=== PATIENT | female | born 2000 | race Caucasian/White ===

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

== ENCOUNTER 2018-02-03 12:01 | Emergency (ER) | payer OTHER ==
[~2018-02-03] VITALS: Ht 160 cm; Wt 68.0 kg
--- NOTE | 2018-02-03 12:44 | PHYS DOC ---
Past History Past Medical History: No Pertinent History Past Surgical History: Other Smoking: Non-smoker Additional Smoking Information: 1/4 PACK/DAY Alcohol Use: None Drug Use: None Adult General Chief Complaint Chief Complaint: ABDOMINAL PAIN HPI HPI Patient is a 17-year-old female who presents for evaluation of lower abdominal pain. She states that she is almost a week late on her current menstrual cycle and is concerned to be . She did take 2 home tests which were negative. She says the pain has been present for about a week and a half. It is intermittent and sharp. When I walked in the room to evaluate the patient she was on her cell phone and smiling and appeared to be comfortable and in no distress. She denies vaginal bleeding or discharge, constipation or diarrhea, fevers or chills, vomiting but has had some mild nausea, and denies chest pain or shortness of breath. She does report some lower back pain which has been mild. She states that it feels like she is having cramping typical of her menstrual period but she is not any bleeding at this point. LMP 12/27/17. Review of Systems Review of Systems Constitutional: Denies fever or chills [] Eyes: Denies change in visual acuity, redness, or eye pain [] HENT: Denies nasal congestion or sore throat [] Respiratory: Denies cough or shortness of breath [] Cardiovascular: No additional information not addressed in HPI [] GI: , no vomiting, bloody stools or diarrhea [] +lower abd pain, +nausea : Denies dysuria or hematuria [] +pelvic pain Musculoskeletal: Denies joint pain [] +low back pain Integument: Denies rash or skin lesions [] Neurologic: Denies headache, focal weakness or sensory changes [] Endocrine: Denies polyuria or polydipsia [] All other systems were reviewed and found to be within normal limits, except as documented in this note. Allergies Allergies Allergies Coded Allergies Type Severity Reaction Last Updated Verified No Known Drug Allergies 09/13/15 No Physical Exam Physical Exam Constitutional: Well developed, well nourished, no acute distress, non-toxic appearance. [] appears calm and comfortable HENT: Normocephalic, atraumatic, bilateral external ears normal, oropharynx moist, no oral exudates, nose normal. [] Eyes: PERRLA, EOMI, conjunctiva normal, no discharge. [] Neck: Normal range of motion, no tenderness, supple, no stridor. [] Cardiovascular:Heart rate regular rhythm, no murmur [] Lungs & Thorax: Bilateral breath sounds clear to auscultation [] Abdomen: Bowel sounds normal, soft, no tenderness, no masses, no pulsatile masses. [] +b/l adnexal ttp, +suprapubic ttp Pelvic exam: copious white/yellow discharge, no focal tenderness on bimanual, no bleeding, normal external genitalia, cervix with discharge but otherwise unremarkable Skin: Warm, dry, no erythema, no rash. [] Back: No tenderness, no CVA tenderness. [] Extremities: No tenderness, no cyanosis, no clubbing, ROM intact, no edema. [] Neurologic: Alert and oriented X 3, normal motor function, normal sensory function, no focal deficits noted. [] Psychologic: Affect normal, judgement normal, mood normal. [] Current Patient Data Vital Signs Vital Signs Date Time Temp Pulse Resp B/P (MAP) Pulse Ox O2 Delivery O2 Flow Rate FiO2 02/03/18 12:10 98.6 74 16 99 Room Air Lab Results Laboratory Tests Test 02/03/18 11:40 02/03/18 12:25 02/03/18 12:52 02/03/18 13:18 Bedside Urine HCG, Qualitative hcg negative Urine Collection Type Unknown Urine Color Yellow Urine Clarity Hazy Urine pH 5.5 Urine Specific [place] 1.025 Urine Protein Neg Urine Glucose (UA) Neg mg/dL Urine Ketones (Stick) Trace mg/dL Urine Blood Trace Urine Nitrite Neg Urine Bilirubin Neg Urine Urobilinogen Dipstick 0.2 mg/dL Urine Leukocyte Esterase Neg Urine RBC 0 /HPF Urine WBC Occ /HPF Urine Squamous Epithelial Cells Many /LPF Urine Bacteria Few /HPF Urine Mucus Slight /LPF White Blood Count 9.3 x10^3/uL Red Blood Count 4.78 x10^6/uL Hemoglobin 14.0 g/dL Hematocrit 42.2 % Mean Corpuscular Volume 88 fL Mean Corpuscular Hemoglobin 29 pg Mean Corpuscular Hemoglobin Concent 33 g/dL Red Cell Distribution Width 14.1 % Platelet Count 254 x10^3/uL Neutrophils (%) (Auto) 59 % Lymphocytes (%) (Auto) 34 % Monocytes (%) (Auto) 5 % Eosinophils (%) (Auto) 2 % Basophils (%) (Auto) 1 % Neutrophils # (Auto) 5.4 x10^3uL Lymphocytes # (Auto) 3.2 x10^3/uL Monocytes # (Auto) 0.4 x10^3/uL Eosinophils # (Auto) 0.2 x10^3/uL Basophils # (Auto) 0.1 x10^3/uL Maternal Serum HCG Beta Subunit < 1 mIU/mL Sodium Level 141 mmol/L Potassium Level 3.6 mmol/L Chloride Level 104 mmol/L Carbon Dioxide Level 26 mmol/L Anion Gap 11 Blood Urea Nitrogen 13 mg/dL Creatinine 0.9 mg/dL Estimated GFR (Cockcroft-Gault) 80.7 BUN/Creatinine Ratio 14 Glucose Level 96 mg/dL Calcium Level 9.2 mg/dL Total Bilirubin 0.2 mg/dL Aspartate Amino Transf (AST/SGOT) 15 U/L Alanine Aminotransferase (ALT/SGPT) 14 U/L Alkaline Phosphatase 61 U/L Total Protein 6.9 g/dL Albumin 3.7 g/dL Albumin/Globulin Ratio 1.2 Lipase 91 U/L Current Medications Medications (Trade) Dose Ordered Sig/Willa Route PRN Reason Start Time Stop Time Status Last Admin Dose Admin Ketorolac Tromethamine (Toradol) 30 mg 1X ONCE IV 02/03/18 13:15 02/03/18 13:16 DC 02/03/18 13:19 Ceftriaxone Sodium (Rocephin Im) 250 mg 1X ONCE IM 02/03/18 14:00 02/03/18 14:01 DC 02/03/18 13:55 Azithromycin (Zithromax) 1 gm 1X ONCE PO 02/03/18 14:10 02/03/18 14:11 DC 02/03/18 13:50 Laboratory Tests Test 02/03/18 11:40 POC Urine HCG, Qualitative hcg negative (Negative) EKG EKG [] Radiology/Procedures Radiology/Procedures [address] [address] IMAGING REPORT Signed PATIENT: LISA SHARMA ACCOUNT: [id number] : 2000 LOCATION: ER AGE: 17 SEX: F EXAM STATUS: REG ER ORD. PHYSICIAN: ANGELICA OJE DO REASON: b/l adnexal pain, cramping, low back pain, not PROCEDURE: PELVIS COMPLETE EXAM: Pelvic sonogram. HISTORY: Adnexal pain. TECHNIQUE: Sonographic imaging of the pelvis was performed. COMPARISON: None. FINDINGS: The uterus measures 7.4 x 3.7 x 4.5 cm. The ovaries are normal in size and demonstrate normal blood flow. The endometrial stripe measures 10 mm in thickness. There is no pelvic free fluid. IMPRESSION: Unremarkable pelvic sonogram. Electronically signed by: Barbra Sheldon MD (02/03/2018 2:36 PM) [place] [id number] DICTATED AND SIGNED BY: BARBRA SHELDON MD DATE: 02/03/18 [id number] CC: ANGELICA JOE DO; JOSE DANIEL BETHEA MD ~ Course & Med Decision Making Course & Med Decision Making Pertinent Labs and Imaging studies reviewed. (See chart for details) @1450 - patient and mother up dated on lab and imaging results which are unremarkable. Workup today fails to reveal any emergent pathology. The patient has no additional complaints and appears comfortable and is in no distress. Pt will be notified if GC or Chlamydia are positive. Advised patient to follow up with her PCP or DEHAIRING MACHINE TENDER in the next 2-3 days. She is stable for discharge at this time. Dragon Disclaimer Dragon Disclaimer This electronic medical record was generated, in whole or in part, using a voice recognition dictation system. Departure Departure: Impression: Primary Impression: Pelvic pain Additional Impression: Vaginal discharge Disposition: 01 HOME, SELF-CARE Condition: STABLE Referrals: JOSE DANIEL BETHEA MD (PCP) Patient Instructions: Pelvic Pain, Female Additional Instructions: Follow-up with your doctor in the next 2-3 days. Return to the emergency Department immediately for new or worsening symptoms. Take ibuprofen at home for pain relief. Problem Qualifiers ANGELICA JOE DO Feb 03, 2018 12:44
[2018-02-03 12:52] LABS: BILIRUBIN,URINE NEG (NEG); CLARITY,URINE HAZY; COLOR,URINE YELLOW; GLUCOSE,URINE NEG (NEG)
[2018-02-03 12:53] LABS: BACTERIA,URINE FEW /HPF (0-FEW); NITRITE,URINE NEG (NEG); RBC,URINE 0 /HPF (0-2); SQUAMOUS EPITHELIAL CELL,UR MANY /LPF; UROBILINOGEN,URINE 0.2 mg/dL (0.2 mg/dL); WBC,URINE OCC /HPF (0-4)
[2018-02-03 13:09] LABS: BASO # 0.1 x10^3/uL (0.0-0.2); BASO % 1 % (0-3); EOS # 0.2 x10^3/uL (0.0-0.7); EOS % 2 % (0-3); HEMATOCRIT 42.2 % (36.0-47.0); LYMPH # 3.2 x10^3/uL (1.0-4.8); LYMPH % 34 % (24-48); MEAN CORPUSCULAR HEMOGLOBIN 29 pg (25-35); MEAN CORPUSCULAR HGB CONC 33 g/dL (31-37); MEAN CORPUSCULAR VOLUME 88 fL (79-100); MONO # 0.4 x10^3/uL (0.0-1.1); MONO % 5 % (0-9); NEUT # 5.4 x10^3uL (1.8-7.7); NEUT % 59 % (31-73); PLATELET COUNT 254 x10^3/uL (140-400); RED BLOOD COUNT 4.78 x10^6/uL (3.50-5.40); RED CELL DISTRIBUTION WIDTH 14.1 % (11.5-14.5); WHITE BLOOD COUNT 9.3 x10^3/uL (4.0-11.0)
[2018-02-03] MEDS ORDERED: KETOROLAC 30 MG/ML VIAL. IV ONE (13:15)
[2018-02-03 13:46] LABS: ALBUMIN 3.7 g/dL (3.4-5.0); ALBUMIN/GLOBULIN RATIO 1.2 (1.0-1.7); CALCIUM 9.2 mg/dL (8.5-10.1); CREATININE 0.9 mg/dL (0.6-1.0); GFR 80.7; POTASSIUM 3.6 mmol/L (3.5-5.1); TOTAL BILIRUBIN 0.2 mg/dL (0.2-1.0); TOTAL PROTEIN 6.9 g/dL (6.4-8.2)
[2018-02-03] MEDS ORDERED: cefTRIAXone IM 250 MG VIAL IM ONE (14:00)
[2018-02-03] MEDS ORDERED: AZITHROMYCIN 1 GM PACKET PO ONE (14:10)
--- NOTE | 2018-02-03 14:40 | RAD ---
EXAM: Pelvic sonogram. HISTORY: Adnexal pain. TECHNIQUE: Sonographic imaging of the pelvis was performed. COMPARISON: None. FINDINGS: The uterus measures 7.4 x 3.7 x 4.5 cm. The ovaries are normal in size and demonstrate normal blood flow. The endometrial stripe measures 10 mm in thickness. There is no pelvic free fluid. IMPRESSION: Unremarkable pelvic sonogram. Electronically signed by: Barbra Mills MD (02/03/2018 2:36 PM) [place] [id number]
[2018-02-03 15:01] VITALS: BP 103/86
[2018-02-04 14:13] LABS: CHLAMYDIA PROBE Negative (Negative)
== END 2018-02-03 15:03 | disposition home or self-care (01) ==
LOC: ER 12:01
DX: N89.8 Other specified noninflammatory disorders of vagina (principal); R10.2 Pelvic and perineal pain; F17.210 Nicotine dependence, cigarettes, uncomplicated
CPT/HCPCS: 36415; 76856; 80053; 81001; 81025; 83690; 84702; 85025; 87491; 87591; 96372; 96374; 99285; J0456; J0696; J1885; Q0111

== ENCOUNTER → 2018-09-05 | Outpatient (CLI) | payer OTHER ==
[2018-09-05 11:32] LABS: BASO % 0 % (0-3); EOS # 0.1 x10^3/uL (0.0-0.7); EOS % 2 % (0-3); HEMATOCRIT 42.1 % (36.0-47.0); LYMPH # 3.1 x10^3/uL (1.0-4.8); LYMPH % 36 % (24-48); MEAN CORPUSCULAR HEMOGLOBIN 30 pg (25-35); MEAN CORPUSCULAR HGB CONC 33 g/dL (31-37); MEAN CORPUSCULAR VOLUME 91 fL (79-100); MONO # 0.7 x10^3/uL (0.0-1.1); MONO % 8 % (0-9); NEUT # 4.7 x10^3uL (1.8-7.7); NEUT % 54 % (31-73); PLATELET COUNT 222 x10^3/uL (140-400); RED BLOOD COUNT 4.64 x10^6/uL (3.50-5.40); RED CELL DISTRIBUTION WIDTH 12.8 % (11.5-14.5); WHITE BLOOD COUNT 8.7 x10^3/uL (4.0-11.0)
[2018-09-05 11:43] LABS: ALBUMIN 4.1 g/dL (3.4-5.0); ALBUMIN/GLOBULIN RATIO 1.1 (1.0-1.7); CALCIUM 8.8 mg/dL (8.5-10.1); CREATININE 0.6 mg/dL (0.6-1.0); GFR 127.5; POTASSIUM 3.6 mmol/L (3.5-5.1); TOTAL BILIRUBIN 0.3 mg/dL (0.2-1.0); TOTAL PROTEIN 7.7 g/dL (6.4-8.2)
[2018-09-05 11:44] LABS: PREG TEST PT QUAL POSITIVE (NEG)
== END | disposition home or self-care (01) ==
LOC: PMG 10:53
PROVIDERS: ATTEND Registered Nurse
DX: Z32.00 Encounter for pregnancy test, result unknown (principal); N91.2 Amenorrhea, unspecified; N94.89 Other specified conditions associated with female genital organs and menstrual cycle; K59.00 Constipation, unspecified; R11.0 Nausea; Z71.89 Other specified counseling
CPT/HCPCS: 36415; 80053; 84703; 85025

== ENCOUNTER → 2018-11-24 | Outpatient (CLI) | payer OTHER ==
--- NOTE | 2018-11-24 15:34 | RAD ---
PREG MORE THAN OR EQ TO 14 WKS History: Uterine size and date discrepancy Comparison: There is no previous relevant exam available Findings: Multiple sonographic images of the uterus are submitted. Cervix measured 4.1 cm in length. There is a single intrauterine fetus in breech presentation. heart rate was 152 bpm. Subjectively amniotic fluid volume is within normal limits. Submitted four-chamber view of the heart is limited due to positioning. There is three-vessel cord. Of the visualized spine, no obvious abnormality is demonstrated. There is midline cord insertion. 2 kidneys were visualized. bladder was visualized. 2 upper and lower extremities were visualized. stomach is visualized. There is posterior placenta. Maternal adnexal regions were imaged although ovaries not seen. There is no abnormality demonstrated of the visualized brain structures. Biometry data are as follows: Biparietal diameter 4.32 cm corresponds with 19 weeks 0 days Head circumference 15.79 cm corresponds with 18 weeks 5 days Abdominal circumference 13.51 cm corresponds with 19 weeks 0 days Femur length 2.74 cm corresponds with 18 weeks 3 days. Adjusted ultrasound age 18 weeks 6 days with estimated delivery date by ultrasound of 04/21/2019. LMP age 18 weeks 3 days with estimated delivery date of 04/24/2019 HC/AC ratio 1.17 Estimated weight 253 g +/- 37 g Impression: 1. Of the visualized fetus, no significant anatomic abnormality is demonstrated although limited four-chamber view of the heart for exam. Adjusted ultrasound age is 18 weeks 6 days with estimated delivery date of 04/21/2019. Electronically signed by: Alton Krishna MD (11/24/2018 3:31 PM) [id number]
== END | disposition home or self-care (01) ==
LOC: US 10:24
PROVIDERS: ATTEND Obstetrics & Gynecology
DX: O26.842 Uterine size-date discrepancy, second trimester (principal); Z3A.18 18 weeks gestation of pregnancy
CPT/HCPCS: 76805

== ENCOUNTER → 2020-05-20 | Outpatient (CLI) | payer OTHER ==
--- NOTE | 2020-05-20 16:57 | RAD ---
OB ultrasound greater than 14 weeks 05/20/2020 Clinical History: Second trimester . Size and dates. Technique: A real-time ultrasound examination of the gravid uterus was performed. Multiple images were obtained. Findings: There is a single living IUP. The fetus is in atransverse position. cardiac and somatic activity is seen. The heart rate is 147 beats per minutes. The maternal cervix is closed. It measures 5.7 cm in length. The placenta is a posterior/fundal position. No abnormality is seen. The amniotic fluid volume is within normal limits. Neither maternal ovary is visualized. No adnexal mass is seen. The following measurements were obtained: BPD 4.2cm 18 weeks 6 days HC 15.2 cm 18weeks to days AC 13.6 cm 19weeks 0 days FL 2.7 cm 18 weeks 2 days The estimated gestational age by ultrasound is 18 weeks 4 days plus or minus a standard deviation of 10 days. The estimated date of delivery by ultrasound is 10/17/2020. No abnormality is seen. Specifically the stomach, bladder, kidneys, 3 vessel cord and cord insertion, four-chamber heart, cisterna magna, cerebellum, nose/mouth, spine and extremities are well-visualized and within normal limits. Impression: Single living IUP with an estimated gestational age by ultrasound of 18 weeks4 days +/- a standard deviation of 10 days. The estimated date of delivery by ultrasound is10/17/2020. Electronically signed by: Calvin Jean-Baptiste MD (05/20/2020 4:55 PM) [id number]
== END | disposition home or self-care (01) ==
LOC: US 12:58
PROVIDERS: ATTEND Obstetrics & Gynecology
DX: O26.842 Uterine size-date discrepancy, second trimester (principal); Z3A.18 18 weeks gestation of pregnancy
CPT/HCPCS: 76805

== ENCOUNTER 2020-06-23 18:12 | Emergency (ER) | payer OTHER ==
[~2020-06-23] VITALS: Ht 160 cm; Wt 65.0 kg
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
[2020-06-23 20:37] VITALS: BP 105/61
== END 2020-06-23 20:38 | disposition home or self-care (01) ==
LOC: EEVIPCON 18:12 → ER 18:12
DX: O26.892 Other specified pregnancy related conditions, second trimester (principal); R10.30 Lower abdominal pain, unspecified; R51.9 Headache, unspecified; Z3A.23 23 weeks gestation of pregnancy; Y08.89XA Assault by other specified means, initial encounter; Y93.89 Activity, other specified; Y92.89 Other specified places as the place of occurrence of the external cause; Y99.8 Other external cause status
CPT/HCPCS: 76805; 99284

== ENCOUNTER → 2021-03-17 | Outpatient (CLI) | payer OTHER ==
--- NOTE | 2021-03-17 15:14 | RAD ---
AP and Lateral Views of the Chest 03/17/2021 3:00 PM Indication: Reason: PERSISTENT COUGH FOR MORE THAN 3 WEEKS / Spl. Instructions: / History: Comparison: None Findings: There is no focal consolidation or infiltrate identified. The cardiomediastinal silhouette is within normal limits. There is no evidence of pneumothorax or pleural effusion. No acute osseous a bnormalities are identified. Impression: No evidence of acute cardiopulmonary process. Electronically signed by: Roger Baldwin MD (03/17/2021 3:11 PM) [id number]
== END ==
LOC: RAD 14:32
PROVIDERS: ATTEND Nurse Practitioner Family
DX: R05 Cough (principal)
CPT/HCPCS: 71046

== ENCOUNTER 2021-08-18 13:14 | Emergency (ER) | payer OTHER ==
[~2021-08-18] VITALS: Ht 160 cm; Wt 84.0 kg
[2021-08-18 13:33] VITALS: BP 136/83
--- NOTE | 2021-08-18 13:45 | PHYS DOC ---
Past History Past Medical History: No Pertinent History Past Surgical History: No Surgical History Smoking: Non-smoker Alcohol Use: None Drug Use: None General Adult EDM: Chief Complaint: COUGH HPI: HPI: 21-year-old female presents with concern for COVID-19. Patient is not vaccinated. She has had altered taste and smell for 5 days. She decided she should come in to get tested. She was unable to get and had any of the outpatient testing facilities. She has generalized fatigue. She denies fever or chills. Review of Systems: Review of Systems: Constitutional: Denies fever or chills. Fatigue, body aches. Eyes: Denies change in visual acuity HENT: Denies nasal congestion or sore throat Respiratory: Denies cough or shortness of breath Cardiovascular: Denies chest pain or edema GI: Denies abdominal pain, nausea, vomiting, bloody stools or diarrhea : Denies dysuria Musculoskeletal: Denies back pain or joint pain Integument: Denies rash Neurologic: Loss of taste and smell. Denies headache, focal weakness or sensory changes Endocrine: Denies polyuria or polydipsia Lymphatic: Denies swollen glands Psychiatric: Denies depression or anxiety Allergies: Allergies: Allergies Coded Allergies Type Severity Reaction Last Updated Verified No Known Drug Allergies 08/18/21 No Physical Exam: PE: Constitutional: Well developed, well nourished, obese, no acute distress, non- toxic appearance. [] HENT: Normocephalic, atraumatic, bilateral external ears normal, oropharynx moist, no oral exudates, nose normal. [] Eyes: PERRLA, EOMI, conjunctiva normal, no discharge. [] Neck: Normal range of motion, no tenderness, supple, no stridor. [] Cardiovascular: Heart rate regular rhythm, no murmur [] Lungs & Thorax: Bilateral breath sounds clear to auscultation [] Abdomen: Bowel sounds normal, soft, no tenderness, no masses, no pulsatile masses. [] Skin: Warm, dry, no erythema, no rash. [] Back: No tenderness, no CVA tenderness. [] Extremities: No tenderness, no cyanosis, no clubbing, ROM intact, no edema. [] Neurologic: Alert and oriented X 3, normal motor function, normal sensory function, no focal deficits noted. [] Psychologic: Affect normal, judgement normal, mood normal. [] Current Patient Data: Vital Signs: Vital Signs Date Time Temp Pulse Resp B/P (MAP) Pulse Ox O2 Delivery O2 Flow Rate FiO2 08/18/21 13:33 97.4 87 18 136/83 (100) 97 Room Air EKG: EKG: [] Radiology/Procedures: Radiology/Procedures: [] Heart Score: C/O Chest Pain: N/A Risk Factors: Risk Factors: DM, Current or recent (<one month) smoker, HTN, HLP, family history of CAD, obesity. Risk Scores: Score 0 - 3: 2.5% MACE over next 6 weeks - Discharge Home Score 4 - 6: 20.3% MACE over next 6 weeks - Admit for Clinical Observation Score 7 - 10: 72.7% MACE over next 6 weeks - Early Invasive Strategies Course & Med Decision Making: Course & Med Decision Making Pertinent Labs and Imaging studies reviewed. (See chart for details) The patient has COVID-19. Her official test results are pending we will inform her when the results are available. She is stable for discharge at this time. [] Dragon Disclaimer: Dragon Disclaimer: This electronic medical record was generated, in whole or in part, using a voice recognition dictation system. Departure Departure: Impression: Primary Impression: COVID-19 Disposition: HOME / SELF CARE / HOMELESS Condition: STABLE Referrals: VIRGEN SHOEMAKER MD (PCP) Patient Instructions: Viral Syndrome Additional Instructions: You have been tested for or diagnosed with COVID-19. It is an infection caused by a new type of coronavirus. COVID-19 will cause cold-like or mild flu symptoms in most. It can cause more severe symptoms like problems breathing in some. There is no treatment for COVID-19. The body will clear the infection over time. Self-care will help to ease discomfort. Steps to Take: Self-Care Rest as needed. Healthy habits may help you feel better. Steps include: Choose healthy foods including fruits and vegetables. Drink water throughout the day. Get plenty of sleep each night. If you smoke, try to quit. It may ease breathing. Avoid alcohol. Keep Others Healthy The virus can spread to others. Droplets are released every time you sneeze or cough. The droplets can get into the mouth, nose, or eyes of people near you and lead to i nfection. To lower the chances of spreading COVID-19 to others: Stay at home until your doctor has said it is safe to leave. If you tested positive this will mean staying isolated until both of the following are true: At least 7 days have passed since the start of illness. You are free of fever for at least 72 hours without the use of medicine. During this time: - Avoid public areas, events, or transportation. Do not return to work or school until your doctor has said it is safe to do so. - Call ahead if you need to go to a medical center. Let them know you may have COVID-19. It will help them guide you where to go. They may also ask you to wear a facemask when you come to the office. - If you call for emergency medical services, let them know you may have COVID- 19. While at home: - Try to avoid close contact with others. Stay about 6 feet away. - If possible, spend most of your time in a separate room from others. - Use a face mask if you will be in close contact with others such as sharing a room or vehicle. - Have someone wipe down common surfaces in the home. Use household obstetrical anesthesiologist every day on areas like doorknobs, counters, or sinks. - Cough or sneeze into a tissue. Throw the tissue away right after use. If a tissue is not available, cough or sneeze into your elbow. - Wash your hands often. Wash them after sneezing or coughing. Use soap and water and wash for at least 20 seconds. Alcohol based hand industrial cleaner can be used if soap and water is not available. - Do not prepare food for others. Avoid sharing personal items like forks, spoons, or toothbrushes. - Avoid close contact with pets while you are sick. There is no evidence of the virus passing to pets. This is a safety step until more is known about this virus. Isolation can be frustrating. Social interaction can help. Keep in touch with friends and family through phone and tech options. You can still interact with others in your home, just keep a safe distance of about 6 feet. Follow-up: Your doctors office will check in with you to see if there are any changes in your health. You may be asked to keep track of symptoms to share with them. They will also let you know when you are clear to be in public again. Problems to Look Out For: Contact your doctor if your recovery is not going as you expect. Get emergency care if you have problems such as: - Trouble breathing - Nonstop chest pain or pressure - Changes in awareness, confusion, or problems waking - Lips or face have bluish color - Worsening of symptoms If you think you have an emergency, call for emergency medical services right away. As taken from [facility] RADHA HARRIS DO Aug 18, 2021 13:45
[2021-08-18 14:51] LABS: INFLUENZA A PATIENT NEGATIVE (NEGATIVE); INFLUENZA B PATIENT NEGATIVE (NEGATIVE)
--- NOTE | 2021-08-20 15:46 | NUR ---
COVID POS RESULTS GIVEN BY TO.
== END 2021-08-18 13:58 | disposition home or self-care (01) ==
LOC: ER 13:18
DX: U07.1 COVID-19 (principal)
CPT/HCPCS: 87804; 99283; C9803; U0003

== ENCOUNTER 2021-10-20 12:19 | Emergency (ER) | payer OTHER ==
[~2021-10-20] VITALS: Ht 160 cm; Wt 84.0 kg
[2021-10-20 12:19] VITALS: BP 112/63
--- NOTE | 2021-10-20 13:06 | PHYS DOC ---
Past History Past Medical History: No Pertinent History Past Surgical History: No Surgical History Smoking: Non-smoker Alcohol Use: None Drug Use: None General Adult EDM: Chief Complaint: MULTIPLE COMPLAINTS HPI: HPI: 21-year-old female presents with bilateral maxillary sinus pressure and irritated left eye with supraorbital swelling. The patient has felt cold-like symptoms for a couple of weeks. In the last few days she has had very erythematous left eye with crusting in the morning. Today she has mildly swollen upper eyelid and eyebrow area. This taken with her maxillary sinus pain prompted her to come in for evaluation. She is not sure if she has an eye infection or sinus infection or decide what is going on. Patient also has a sore throat but is still able to eat and drink. No significant cough. Review of Systems: Review of Systems: Constitutional: Denies fever or chills Eyes: Erythematous left eye, periorbital swelling HENT: Nasal congestion, sore throat. Respiratory: Denies cough or shortness of breath Cardiovascular: Denies chest pain or edema GI: Denies abdominal pain, nausea, vomiting, bloody stools or diarrhea : Denies dysuria Musculoskeletal: Denies back pain or joint pain Integument: Denies rash Neurologic: Denies headache, focal weakness or sensory changes Endocrine: Denies polyuria or polydipsia Lymphatic: Denies swollen glands Psychiatric: Denies depression or anxiety Allergies: Allergies: Allergies Coded Allergies Type Severity Reaction Last Updated Verified No Known Drug Allergies 08/18/21 No Physical Exam: PE: Constitutional: Well developed, well nourished, no acute distress, non-toxic appearance. [] HENT: Normocephalic, atraumatic, bilateral external ears normal, erythematous tonsils bilaterally, nose congested. Bilateral maxillary sinus pain. [] Eyes: PERRLA, EOMI, conjunctiva mildly erythematous on the left, no obvious discharge. Edematous upper outer eyelid on the left. [] Neck: Normal range of motion, no tenderness, supple, no stridor. [] Cardiovascular: Heart rate regular rhythm, no murmur [] Lungs & Thorax: Bilateral breath sounds clear to auscultation [] Abdomen: Bowel sounds normal, soft, no tenderness, no masses, no pulsatile masses. [] Skin: Warm, dry, no erythema, no rash. [] Back: No tenderness, no CVA tenderness. [] Extremities: No tenderness, no cyanosis, no clubbing, ROM intact, no edema. [] Neurologic: Alert and oriented X 3, normal motor function, normal sensory function, no focal deficits noted. [] Psychologic: Affect normal, judgement normal, mood normal. [] Current Patient Data: Vital Signs: Vital Signs Date Time Temp Pulse Resp B/P (MAP) Pulse Ox O2 Delivery O2 Flow Rate FiO2 10/20/21 12:19 98.4 59 14 112/63 (79) 100 Room Air EKG: EKG: [] Radiology/Procedures: Radiology/Procedures: [] Heart Score: C/O Chest Pain: N/A Risk Factors: Risk Factors: DM, Current or recent (<one month) smoker, HTN, HLP, family history of CAD, obesity. Risk Scores: Score 0 - 3: 2.5% MACE over next 6 weeks - Discharge Home Score 4 - 6: 20.3% MACE over next 6 weeks - Admit for Clinical Observation Score 7 - 10: 72.7% MACE over next 6 weeks - Early Invasive Strategies Course & Med Decision Making: Course & Med Decision Making Pertinent Labs and Imaging studies reviewed. (See chart for details) The patient's rapid strep was negative. I am suspicious for conjunctivitis of the left eye as well as maxillary sinus infection. I will treat her with erythromycin ointment and Augmentin. She is stable for discharge at this time. [] Dragon Disclaimer: Dragcastro Disclaimer: This electronic medical record was generated, in whole or in part, using a voice recognition dictation system. Departure Departure: Impression: Primary Impression: Bacterial conjunctivitis of left eye Additional Impression: Sinusitis Qualified Codes: J01.00 - Acute maxillary sinusitis, unspecified Disposition: HOME / SELF CARE / HOMELESS Condition: STABLE Referrals: VIRGEN SHOEMAKER MD (PCP) Patient Instructions: Conjunctivitis (Viral and Bacterial), Sinusitis, [id number] Scripts Erythromycin Base (Erythromycin) 1 Gm Oint...g. 1 GM OP TID for bacterial conjunctivitis for 7 Days, #1 MISC Prov: RADHA HARRIS DO 10/20/21 Amoxicillin/Potassium Clav (AMOX TR-K CLV 875-125 MG TAB) 1 Each Tablet 1 TAB PO BID for sinusitis for 7 Days, #14 TAB Prov: RADHA HARRIS DO 10/20/21 RADHA HARRIS DO Oct 20, 2021 13:06
[2021-10-20] MEDS ORDERED: AMOX1TAB11 PO (13:39)
[2021-10-20] MEDS ORDERED: ERYT1OIN6 OP (13:39)
== END 2021-10-20 14:00 | disposition home or self-care (01) ==
LOC: ER 12:19
DX: H10.89 Other conjunctivitis (principal); J01.00 Acute maxillary sinusitis, unspecified
CPT/HCPCS: 87070; 87880; 99283